=== PATIENT | male | born 1990 | race Caucasian/White ===

== ENCOUNTER 2021-12-25 15:55 | Emergency (ER) | payer SELFPAY ==
[2021-12-25] MEDS ORDERED: Sodium Chloride 0.9% 2.5 ML Syringe FLUSH PRN (16:35)
[2021-12-25] MEDS ORDERED: Sodium Chloride 0.9% 10 ML Syringe FLUSH PRN (16:35)
[2021-12-25 18:07] LABS: BLOOD UREA NITROGEN,BUN 7 mg/dL (7.0-18.0); CARBON DIOXIDE,CO2 29.3 mmol/L (21.0-32.0); CHLORIDE,CL 105 mmol/L (98-107); GLUCOSE RANDOM 110 mg/dL (74-106); POTASSIUM,K 3.5 mmol/L (3.5-5.1); SODIUM,NA 141 mmol/L (136-148)
== END 2021-12-25 19:25 | disposition home or self-care (01) ==
LOC: MW.ED 15:55
DX: R60.0 Localized edema (principal); Z72.0 Tobacco use
CPT/HCPCS: 36415; 80053; 83880; 85025; 93970; 99284; J3490